=== PATIENT | male | born 1975 | race Caucasian/White ===

== ENCOUNTER → 2025-02-06 15:58 | Outpatient (REF) | payer OTHER, SELFPAY | LOC: HWRAD 15:58 | PROVIDERS: ATTENDING PHYSICIAN Surgery; FAMILY PHYSICIAN Family Medicine | DX: N43.3 Hydrocele, unspecified (principal) | CPT/HCPCS: 76870; 93976 ==

== ENCOUNTER → 2025-04-03 07:51 | Outpatient (REF) | payer OTHER, SELFPAY | LOC: RAD 07:51 | PROVIDERS: ATTENDING PHYSICIAN Surgery; FAMILY PHYSICIAN Family Medicine | DX: N28.1 Cyst of kidney, acquired (principal) | CPT/HCPCS: 74170; Q9967 ==